=== PATIENT | male | born 1990 | race Hispanic/Latino ===

== ENCOUNTER 2018-04-23 19:24 | Emergency (ER) | payer OTHER ==
[2018-04-23 20:16] VITALS: BP 120/67; PULSE 65; RESP 14; TEMP 98.1; O2SAT 97
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
--- NOTE | 2018-04-24 10:35 | RAD ---
Date of service: 04/23/2018 PROCEDURE: Radiographs of the Left Shoulder HISTORY: shoulder pain COMPARISON: No prior. FINDINGS: BONES: No acute fracture. JOINTS: Unremarkable. SOFT TISSUES: Normal. OTHER FINDINGS: None. IMPRESSION: No demonstrated fracture or dislocation.
== END 2018-04-23 23:07 | disposition home or self-care (01) ==
LOC: H.ER 19:24
DX: S40.012A Contusion of left shoulder, initial encounter (principal); V43.52XA Car driver injured in collision with other type car in traffic accident, initial encounter; Y92.410 Unspecified street and highway as the place of occurrence of the external cause